=== PATIENT | male | born 1970 | race Caucasian/White ===

== ENCOUNTER 2022-09-13 11:24 | Day surgery (SDC) | payer OTHER ==
[2022-09-11 14:22] VITALS: BMI 29.9
[2022-09-13] MEDS ORDERED: LACTATED RINGERS 1,000 ML IV SCH (11:36)
[2022-09-13 12:00] VITALS: RESP 16; TEMP 97.9
[2022-09-13] MEDS ORDERED: PROPOFOL 10 MG/ML 20 ML VIAL IV ONE (12:40)
[2022-09-13] MEDS ORDERED: MIDAZOLAM 2 MG/2 ML VIAL ONE (12:40)
[2022-09-13] MEDS ORDERED: LIDOCAINE 2% INJ 20 MG/ML (2 ML VIAL) ONE (12:40)
[2022-09-13] MEDS ORDERED: fentaNYL (PF) 50 MCG/ML 2 ML AMP ONE (12:40)
--- NOTE | 2022-09-13 13:01 | P.PCN ---
Date of Procedure: 09/13/22 Procedure(s) Performed: Brief history: Patient is a [id number] white male scheduled for an elective upper endoscopy as well as colonoscopy as a part of evaluation ofI deficiency anemia and intermittent rectal bleeding Procedure performed: Esophagogastroduodenoscopy with biopsy Colonoscopy with snare polypectomy Preoperative diagnosis: Iron deficiency anemia and intermittent rectal bleeding [place] [facility] [place]: After informed consent was obtained from the patient was brought into the endoscopy unit and IV sedation was administered by anesthesia under continuous monitoring. Initially upper endoscopy was done. The Olympus GF 160 video endoscope was inserted inserted into the mouth and esophagus intubated without any difficulty and was gradually advanced into the stomach and duodenum and carefully examined. The bulb and second part of the duodenum appeared normal. Biopsies were done from the duodenum to rule out celiac disease. The scope was then withdrawn into the stomach adequately insufflated with air and upon careful examination the antrum had scattered erosions and biopsies were done from this area. In the mid body of the stomach there was a 1 cm polyp identified that was biopsied. There are several other small polyps noted in thebody the stomach. cardia and fundus appeared normal. The scope was then withdrawn into the esophagus. The GE junction was located at 40 cm to the incisors. It appeared regular with no erythema erosions or ulcerations. Rest of the esophagus appeared normal. Patient tolerated the procedure well. At this time the patient continued to remain sedation. Initial digital rectal examination was normal. Olympus CF 160 video colonoscope was then inserted into the rectum and gradually advanced to the cecum without any difficulty. Careful examination was performed as the scope was gradually being withdrawn. The prep was excellent. The cecum, ascending colon, appeared normal. In the transverse colon there was a 5 mm polyp that was removed by snare polypectomy. Rest of the transverse colon, descending colon, sigmoid colon and rectum appeared normal. Retroflexion was performed in the rectum and no lesions were noted. Patient tolerated the procedure well. Impression: 1. Upper endoscopy revealed antral erosive gastritis and 1 cm polypin the distal body the stomach status post biopsy 2. Colonoscopy revealed a 5 mm transverse colon polyp status post snare polypectomy and the rest of the colon appeared normal Recommendations: Findings of this examination were discussed with the patient as well as his family.he was advised to follow with the biopsy results.if the biopsy reveals adenoma he can have a repeat colonoscopy in 5 years.
[2022-09-13 13:33] VITALS: BP 126/80; PULSE 79
== END 2022-09-13 13:50 | disposition home or self-care (01) ==
LOC: ORWHC2ENDO 11:24
PROVIDERS: ATTEND Internal Medicine Gastroenterology
DX: C83.10 Mantle cell lymphoma, unspecified site (principal); K29.50 Unspecified chronic gastritis without bleeding; K62.5 Hemorrhage of anus and rectum; D50.9 Iron deficiency anemia, unspecified; G47.33 Obstructive sleep apnea (adult) (pediatric); Z90.89 Acquired absence of other organs; Z98.890 Other specified postprocedural states; Z79.899 Other long term (current) drug therapy
CPT/HCPCS: 45385; 43239; J2250; J3010; J2704; J2001; 88305; 88341; 88342